=== PATIENT | male | born 1955 | race Caucasian/White ===

== ENCOUNTER 2019-11-22 07:10 | Day surgery (SDC) | payer BC, OTHER ==
[~2019-11-22 07:10] MED LIST: Lactated Ringers 1,000 ML IV SCH; Lidocaine 1%/Sod Bicarbonate in NS 8.4% 1 ML Syringe IDERM PRN; Sodium Chloride 0.9% 10 ML Syringe FLUSH PRN
[2019-11-22] MEDS ORDERED: Propofol 200 MG/20 ML SDV ONE ×2 (07:13→08:01)
[2019-11-22] MEDS ORDERED: Midazolam 1 MG/ML 2 ML SDV ONE (07:14)
[2019-11-22] MEDS ORDERED: Lidocaine 1% 4 ML ONE (07:14)
[2019-11-22] MEDS ORDERED: fentaNYL 100 MCG/2 ML SDV ONE (07:14)
[2019-11-22] MEDS ORDERED: Labetalol 100 MG/20 ML MDV ONE (07:46)
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
--- NOTE | 2019-11-22 08:29 | PCM.OPNOTE ---
- General Post-Op/Procedure Note Date of Surgery/Procedure: 11/22/19 Operative Procedure(s): Colonoscopy with cold forceps biopsy Findings: 2 mm transverse colon polyps x 2, rectal polyp 2 mm, diverticulosis sigmoid colon Pre Op Diagnosis: Colon cancer screening Post-Op Diagnosis: Colon polyps, diverticulosis sigmoid colon Anesthesia Technique: MAC Primary Surgeon: Kenneth Valencia Anesthesia Provider: Sam Akers EBL in mLs: 5 Complications: None Condition: Good Free Text/Narrative:: After the patient gave verbal and written consent he was placed on blood pressure and pulse ox monitoring. He was given iv sedation which he tolerated well. The olympus colonoscope was inserted per rectum and advanced to the cecum without difficulty. The ileocecal valve and appendiceal orfice were imaged documenting cecal intubation. The scope was slowly withdrawn. The prep was good, the views were good. 3 polyps were noted in the colon all being 2 mm in diameter. They were sessile. 2 of the polyps were located in the transverse colon and 1 of the polyps was located in the rectum. The polyps were removed with cold forceps biopsy. Hemostasis was achieved. The scope was then retroflexed in the rectum and removed. The details are above. There were no complications and the patient left the endoscopy suite in good condition.
== END 2019-11-22 09:01 | disposition home or self-care (01) ==
LOC: JD.SDS 07:10
PROVIDERS: ATTEND Family Medicine
DX: Z12.11 Encounter for screening for malignant neoplasm of colon (principal); D12.3 Benign neoplasm of transverse colon; K62.1 Rectal polyp; E66.01 Morbid (severe) obesity due to excess calories; I10 Essential (primary) hypertension; Z88.2 Allergy status to sulfonamides; Z01.812 Encounter for preprocedural laboratory examination; Z20.828 Contact with and (suspected) exposure to other viral communicable diseases; Z91.030 Bee allergy status; Z87.891 Personal history of nicotine dependence; Z79.899 Other long term (current) drug therapy; Z68.41 Body mass index [BMI] 40.0-44.9, adult
CPT/HCPCS: 45380; 87635; J2001; J2250; J2704; J3010; J3490; J7120; 00812; U0002

== ENCOUNTER 2019-11-23 13:12 | Emergency (ER) | payer OTHER, MEDICARE, BC ==
[2019-11-23] MEDS ORDERED: Sodium Chloride 0.9% 10 ML Syringe FLUSH PRN ×2 (13:36→14:26)
[2019-11-23] MEDS ORDERED: HYDROmorphone 0.5 MG/0.5 ML Syringe IVPUSH ONE ×2 (13:54→15:36)
[2019-11-23] MEDS ORDERED: Sodium Chloride 0.9% 1,000 ML IV STA (13:54)
[2019-11-23] MEDS ORDERED: Ondansetron 4 MG/2 ML SDV IVPUSH ONE (13:54)
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
[2019-11-23] MEDS ORDERED: Diatrizoate Meglumine/Diatrizoate Sodium 37% 120 ML Bottle PO ONE (14:26)
[2019-11-23] MEDS ORDERED: Iopamidol 612 MG/ML 100 ML Bottle IVPUSH ONE (14:26)
[2019-11-23] MEDS ORDERED: Dicyclomine 20 MG/2 ML SDV IM ONE (15:44)
--- NOTE | 2019-12-29 16:03 | CT ---
"PROCEDURE INFORMATION: Exam: CT Abdomen And Pelvis Without Contrast Exam date and time: 11/23/2019 2:55 PM Age: 64 years old Clinical indication: Patient HX: Right sided abdominal pain, post colonoscopy TECHNIQUE: Imaging protocol: Computed tomography of the abdomen and pelvis without contrast. Radiation optimization: All CT scans at this facility use at least one of these dose optimization techniques: automated exposure control; mA and/or kV adjustment per patient size (includes targeted exams where dose is matched to clinical indication); or iterative reconstruction. Other contrast: Oral, Gastrographin, 90; COMPARISON: No relevant prior studies available. FINDINGS: Liver: Mild hepatic steatosis. Gallbladder and bile ducts: Normal. No calcified stones. No ductal dilation. Pancreas: Normal. No ductal dilation. Spleen: Normal. No splenomegaly. Adrenal glands: Normal. No mass. Kidneys and ureters: Normal. No hydronephrosis. Stomach and bowel: There are scattered diverticuli in the distal colon. Pericolonic fat planes are preserved. Bowel gas pattern is nonobstructive. Appendix: No evidence of appendicitis. Intraperitoneal space: Unremarkable. No free air. No significant fluid collection. Vasculature: Unremarkable. No abdominal aortic aneurysm. Lymph nodes: Unremarkable. No enlarged lymph nodes. Urinary bladder: Unremarkable as visualized. Reproductive: Unremarkable as visualized. Bones/joints: Unremarkable. No acute fracture. Soft tissues: Unremarkable. KAMRYN FREED | Final Radiology Report CONFIDENTIALITY STATEMENT This report is intended only for use by the referring physician, and only in accordance with law. If you received this in error, call [phone]. Page 2 of 2 IMPRESSION: Colonic diverticulosis. No CT evidence of diverticulitis. Thank you for allowing us to participate in the care of your patient. Dictated and Authenticated by: Jun Garza MD 12/29/2019 5:02 PM Central Time ([place] & [place]) [facility]ITALCand[facility]"
== END 2019-11-23 16:15 | disposition home or self-care (01) ==
LOC: JD.ED 13:12
DX: R10.9 Unspecified abdominal pain (principal); I10 Essential (primary) hypertension; Z91.030 Bee allergy status; Z88.2 Allergy status to sulfonamides; Z91.048 Other nonmedicinal substance allergy status
CPT/HCPCS: 36415; 74176; 80053; 81001; 85025; 86140; 96361; 96372; 96374; 96375; 96376; 99284; J0500; J1170; J2405; J7030; Q9963